=== PATIENT | female | born 1960 | race Caucasian/White ===

== ENCOUNTER 2016-10-24 11:21 | Day surgery (SDC) | payer OTHER ==
[~2016-10-24] VITALS: Ht 175.3 cm; Wt 88.5 kg
[~2016-10-24 11:21] MED LIST: ALBU18HF INH; AMT25T PO; ASP81TEC PO; DICY20TA10 PO; IPRA3AMP IH; MECL-114 PO; MOT200T1 PO; NADO40TA PO; NAPR220C16 PO; NARA2.5T2 PO; NITR0.4T SL; ONDA-54 PO; RANI150C4 PO; SIMV40TA5 PO; Sodium Chloride LOK Flush 10 mL Syringe IV PRN; VENL75TA3 PO; VIT1TABL83 PO; fentaNYL-PF 50 mCg/mL 2 mL Inj IVPUSH PRN
[2016-10-24 11:59] VITALS: BP 131/81; PULSE 72; RESP 16; O2SAT 100
[2016-10-24] MEDS ORDERED: fentaNYL-PF 50 mCg/mL 2 mL Inj ONE (12:21)
[2016-10-24] MEDS ORDERED: 0.9% Sodium Chloride 1,000 ML IV PRN (12:21)
[2016-10-24] MEDS ORDERED: fentaNYL-PF 50 mCg/mL 2 mL Inj IVPUSH PRN (12:25)
[2016-10-24] MEDS ORDERED: Sodium Chloride LOK Flush 10 mL Syringe IV PRN (12:25)
[2016-10-24] MEDS: 0.9% Sodium Chloride 1,000 ML IV SCH ×2 (12:42→12:48)
[2016-10-24 12:52] VITALS: BP 156/86; PULSE 64; RESP 18; O2SAT 100
[2016-10-24] MEDS ORDERED: Ondansetron 2 mg/mL 2 mL Inj ONE ×2 (12:53→13:31)
[2016-10-24 13:02] VITALS: BP 139/84; PULSE 64; RESP 14; O2SAT 100
[2016-10-24 13:12] VITALS: BP 135/76; PULSE 70; RESP 16; O2SAT 100
[2016-10-24] MEDS ORDERED: Ondansetron 2 mg/mL 2 mL Inj IVPUSH ONE (13:33)
[2016-10-24 13:35] VITALS: BP 126/80; PULSE 58; RESP 14; O2SAT 100
--- NOTE | 2016-10-24 13:51 | ENDO ---
[address] [address] ENDOSCOPY PROCEDURE PATIENT: TANESHA SCHWARTZ : 1960 MR#: [id number] ADMIT: 10/24/2016 JOB ID: [id number] DATE: 10/24/2016 TYPE OF OPERATION: Colonoscopy. PREOPERATIVE DIAGNOSIS(ES): Colorectal cancer screening. POSTOPERATIVE DIAGNOSIS(ES): 1. Mild sigmoid diverticulosis. 2. Fair to suboptimal prep. ANESTHESIA: 1. Fentanyl 200 mcg. 2. Versed 0 mg IV administered. COMPLICATIONS: None. BLOOD LOSS: Minimal. DESCRIPTION OF PROCEDURE: After risks and benefits were explained to the patient, informed consent was obtained. After anesthesia administered, colonoscope was then inserted from the rectum to cecum. Mucosa carefully examined. Prep of the patient was suboptimal but fair. After the procedure was done, the scope withdrawn and procedure terminated. FINDINGS: Upon inspection of the anus, no masses, hemorrhoids, ulcers or fissures that were seen. Throughout the entire examination, there was quite a bit of liquid brown stool that was seen throughout the entire colon. Several episodes of suction along with saline flushes was deployed at these areas to get better look at the mucosa. There was mild sigmoid diverticulosis. No polyps or masses were seen. Retroflexion was normal. IMPRESSION: 1. Mild sigmoid diverticulosis. 2. Suboptimal to fair prep. RECOMMENDATIONS: 1. High-fiber diet. 2. Repeat colonoscopy with a two day prep approximately 3-5 years for colorectal cancer screening. 3. Followup in GI clinic as needed.
== END 2016-10-24 23:59 | disposition home or self-care (01) ==
LOC: END 11:21
PROVIDERS: ATTEND Internal Medicine Gastroenterology
DX: Z12.11 Encounter for screening for malignant neoplasm of colon (principal); K57.30 Diverticulosis of large intestine without perforation or abscess without bleeding
CPT/HCPCS: G0121; G0500; J2405; J3010; J7030

== ENCOUNTER → 2016-12-28 | Day surgery (SDC) | payer OTHER ==
[2016-12-28] VITALS (14 sets, daily range): BP systolic 107–142; BP diastolic 60–85; PULSE 59–85; RESP 10–19; O2SAT 94–100
[~2016-12-28] VITALS: Ht 175.3 cm; Wt 88.0 kg
[~2016-12-28] MED LIST changes: +ACET-171 PO; -ASP81TEC PO; +Albuterol 2.5 mg/3 mL Inhalation Solution NEB PRN; +Bupivacaine-MPF 0.5% 30 mL Inj INFILTRATE ONE; +CeFAZolin Inj 2 GM in IV Premix 1 EACH IV ONE; +Dexamethasone 4 mg/mL Inj IVPUSH PRN; +Dexamethasone 4 mg/mL Inj ONE; +EPHEDrine Sulfate 50 mg/mL Inj IVPUSH PRN; +EPHEDrine/NS 5 mg/mL 5 mL Syringe ONE; +Glycopyrrolate 0.2 MG/ML 1mL Inj ONE; +HYDROmorphone 1 mg/mL Inj IVPUSH PRN; +HYDROmorphone 1 mg/mL Inj ONE; +IBUP-1827 PO; +Lactated Ringer's 1,000 ML IV ONE; +Lactated Ringer's 1,000 ML IV SCH; +Lactated Ringer's 500 ML IV PRN; -MOT200T1 PO; -NADO40TA PO; +NADO80TA PO; -NITR0.4T SL; +NITR0.4T38 SL; -ONDA-54 PO; +OXYC-530 PO; +Ondansetron 2 mg/mL 2 mL Inj IVPUSH PRN; +Ondansetron 2 mg/mL 2 mL Inj ONE; +POLY17PO6 PO; +Phenylephrine 10,000 mCg/mL Inj IVPUSH PRN; +Promethazine Inj 12.5 MG in Dextrose 5%-Pha MIX 50 ML IV ONE; +Promethazine Inj 12.5 MG in Dextrose 5%-Pha MIX 50 ML IV PRN; +Promethazine Inj 6.25 MG in Dextrose 5%-Pha MIX 50 ML IV ONE; +Propofol 10,000 mCg/mL 20 mL Inj ONE; +Rocuronium 10 mg/mL 5 mL Inj ONE; -Sodium Chloride LOK Flush 10 mL Syringe IV PRN; +VENL150C98 PO; -VENL75TA3 PO; -VIT1TABL83 PO; -fentaNYL-PF 50 mCg/mL 2 mL Inj IVPUSH PRN
[2016-12-28] MEDS: Lactated Ringer's 1,000 ML IV SCH ×2 (10:48→11:56)
--- NOTE | 2016-12-28 11:30 | PCM.HPANE ---
Patient Data Date of Service: Dec 28, 2016 ([id number]) Surgeon Admitting Provider: Attending Provider:Bhumi Olivares MD Primary Care Physician:Traci Boyd DO Other Provider:Marcel Mascorro Anesthesia Reason for Visit Biliary Colic Ht/WT & BMI Height (Feet): 5 Height (Inches): 9 Weight (Kilograms): 88. Body Mass Index 28.00 Allergies Coded Allergies: clindamycin (Verified Allergy, Severe, Hives, 12/27/16) codeine (Verified Allergy, Severe, Migraine headache, 12/27/16) lidocaine (Verified Allergy, Severe, Migraine headache, 12/27/16) metoclopramide (Verified Allergy, Severe, PANIC ATTACK, 10/23/16) prednisone (Verified Allergy, Severe, Pyschosis, 12/27/16) propoxyphene (Verified Allergy, Severe, Migraine headache, 12/27/16) sumatriptan (Verified Allergy, Severe, Hives, 12/27/16) erythromycin base (Verified Allergy, Intermediate, Nausea and vomiting, ) hydrocodone (Verified Allergy, Intermediate, Nausea and vomiting, 12/27/16) zolpidem (Verified Allergy, Intermediate, ITCHING, 10/23/16) temazepam (Verified Allergy, Mild, Nausea, 10/23/16) fentanyl (Verified Adverse Reaction, Severe, SEVERE NAUSEA/VOMITING, ) midazolam (Verified Adverse Reaction, Unknown, 12/27/16) Past Anesthesia History Anesthesia History: Positive for:: Anesthesia Reactions (N+V for 24 hours), Denies:: Abnormal Airway, Difficult Intubation, Fam Anesthesia Reaction, Fam Malignant Hypertherm, Malignant Hyperthermia Diabetes History Hx Diabetes?: No MRSA MRSA: No Medications Home Meds Incl Beta Puja: Yes Date Beta Puja Taken: Dec 27, 2016 Time Beta Puja Taken: 2029 Reported Medications Albuterol Sulfate (Ventolin HFA Inhaler)200 Puff/18 Gm Inhaler1 Puff INH Q4 PRN For Wheezing #1 INHALER Ref 0 12/27/16 Venlafaxine ER 150 Mg Cap.er.48i261 Mg PO DAILY Ref 0 12/27/16 Simvastatin 40 Mg Glvpsx84 Mg PO QPM 30 Days Ref 0 12/27/16 Ranitidine 150 Mg Ecaugpg903 Mg PO BID Ref 0 12/27/16 Nitroglycerin SL 0.4 Mg Tab.subl0.4 Mg SL DIRECTED PRN For Chest Pain 12/27/16 Naratriptan 2.5 Mg Tablet2.5 Mg PO DIRECTED PRN Headache 12/27/16 Nadolol 80 Mg Txpopl12 Mg PO DAILY 30 Days Ref 0 12/27/16 Naproxen Sodium 220 Mg Xvyfcwn451 Mg PO DAILY PRN For Pain Ref 0 12/27/16 Meclizine (Bonine)25 Mg Tab.chew50 Mg PO DIRECTED PRN For Dizziness 12/27/16 Ipratropium/Albuterol Sulfate (Iprat-Albut 0.5-3(2.5) mg/3 mL Inhalant Soln)3 Ml Ampul.neb3 Ml IH Q6 Ref 0 12/27/16 Dicyclomine 20 Mg Fqdyez44 Mg PO BID PRN For GI Cramps Ref 0 12/27/16 Amitriptyline 25 Mg Tab25 Mg PO HS Ref 0 12/27/16 Discontinued Reported Medications Nadolol 40 Mg Zxotnv27 Mg PO DAILY 30 Days Ref 0 10/23/16 Meclizine (Bonine)25 Mg Tab.chew50 Mg PO DAILY 10/23/16 Albuterol Sulfate (Ventolin HFA Inhaler)200 Puff/18 Gm Inhaler1 Puff INH Q4 PRN For Wheezing #1 INHALER Ref 0 10/23/16 Venlafaxine 75 Mg Zpfxts10 Mg PO BIDWM Ref 0 10/23/16 Ranitidine 150 Mg Kserzxk796 Mg PO BID Ref 0 10/23/16 Ondansetron 8 Mg Tablet8 Mg PO QID PRN For Nausea 10/23/16 Nitroglycerin SL (Nitrostat)0.4 Mg Tab.subl0.4 Mg SL Q5MIN PRN For Chest Pain # 1 BOTTLE 10/23/16 Naratriptan 2.5 Mg Tablet2.5 Mg PO DAILY PRN For Headache 10/23/16 Naproxen Sodium 220 Mg Jyihbxd014 Mg PO BID PRN For Pain Ref 0 10/23/16 Dicyclomine 20 Mg Wqmmrs56 Mg PO BID PRN For GI Cramps Ref 0 10/23/16 Amitriptyline 25 Mg Tab12.5 Mg PO HS Ref 0 10/23/16 History History of ENT Problems?: No HEENT History: Positive for:: Sinus Problem (sinus surgery 2 yrs ago) Denies:: Abnormal Airway Cataracts Difficult Intubation Dysphagia Glaucoma Hearing Problem TMJ Denture Type: None Teeth Condition: Within Normal Limits Hx of Heart Problems?: No Cardiovascular History: Denies:: Pacemaker Hx of Respiratory Problem?: Yes Respiratory History: Positive for:: Asthma Pneumonia Use of C-PAP Machine (DX LIBRADO, cannot tolerate mask on face) Use of Inhalers / NEBS (DuoNeb, Albuterol inh) Denies:: COPD Chest Surgery Dyspnea Emphysema Hemoptysis Tuberculosis Hx Neurologic Problems?: Yes Neurological History: Positive for:: Headaches (migraines) Denies:: Alzheimer's Disease CVA Dementia Dizziness Multiple Sclerosis Parkinson's Disease Seizures TIA Hx of GI Problems?: Yes Hx of Problems?: No Female Hx: Positive for:: Problems with Breasts? (fibro cyctic disease) Denies:: Currently Skin History: Positive for:: History Skin Disorders? (Eczema none at this time (12/27/16)) Denies:: Pressure Ulcers Hx Musculoskeletal Problems?: Yes Musculoskeletal History: Positive for:: Back Injury (Chronic back pain) Musculoskeletal Trauma (fractured r arm 1995, right knee torn 1980) Osteoarthritis Denies:: Degenerative Joint Joint Replacement Rheumatoid Arthritis Systemic Lupus Hx of Psycho/Social Problems?: Yes Psycho Social History: Positive for:: Hx Depression Hx Surgeries?: Yes (knee surgery, 2 c-sections, T+A, sinus, endometrial ablation) Hx Any Other Health Problems?: Yes Other History: Positive for:: Hospitalization Denies:: Cancer Endocrine Disease Thyroid Disease History Blood Transfusions: Positive for:: Accept Blood Products? Denies:: Blood Transfusions Hx Diabetes: No Hx Alcohol Use: Yes (Rarely)Hx Substance Use: No Smoking Status: Unknown if Ever Smoker Have You Smoked inLast 12 mo: YesApprox How Many Cigarettes/day: 20 Stop/Bang LIBRADO Risk Assessment: Low Risk, <3 Yes Risk Assessment Category Category 1A: Patient has history of documented sleep apnea, and HAS NOT received any narcotic, sedative or anesthesia administration during this stay. Category 1B: Patient has history of documented sleep apnea, and HAS received any narcotic , sedative or anesthesia administration during this stay Category 2: Patient has SUSPECTED Obstructive Sleep Apnea, and HAS received any narcotic , sedative or anesthesia administration during this stay. Category 3: Patient has SUSPECTED Obstructive Sleep Apnea and HAS NOT received narcotic, sedative or anesthesia administration during this stay. Category 4: Outpatient in Procedural Areas with known sleep apnea or who screen positive for High Risk via the STOP/BANG questionnaire. Exam Exam Vital Signs Vital Signs Date Time Temp Pulse Resp B/P Pulse Ox O2 Delivery O2 Flow Rate FiO2 12/28/16 10:42 36.1 59 16 135/79 100 Room Air General Appearance: Alert, Oriented X3 HEENT/AIRWAY: MP 1 Lungs: Clear to Auscultation Heart: Exam Unremarkable Meds/Labs/Diagnostics Admission Meds Current Medications Lactated Ringer's (Lr) 1,000 ml @ 120 mls/hr Q8H20M IV Last administered on 10:48; Start 12/28/16 at 05:00; Stop 12/28/16 at 13:19 Gabapentin (Neurontin) 600 mg PREOP ONCE PO Last administered on 12/28/16 10: 20; Start 12/28/16 at 06:00; Stop 12/28/16 at 06:01; Status DC Celecoxib (CeleBREX) 200 mg PREOP ONCE PO Last administered on 12/28/16 10:20 ; Start 12/28/16 at 06:00; Stop 12/28/16 at 06:01; Status DC Acetaminophen (Tylenol) 650 mg PREOP ONCE PO Last administered on 12/28/16 10 :20; Start 12/28/16 at 06:00; Stop 12/28/16 at 06:01; Status DC Plan Impression Patient chart reviewed, patient interviewed and anesthestic plan with risks, benefits, and alternatives discussed, and informed consent obtained. NPO per Anesth. Guidelines: Yes ASA Physical Status: ASA2 Mod Systemic Disease Anesthetic Plan: GA Bene/Risks/Altern/Consents: Yes HP Complete Prior to Induction: Yes Mil Vergara MD Dec 28, 2016 11:30
--- NOTE | 2016-12-28 13:50 | PCM.DISURG ---
Surgical Discharge Instruction Date of Service Dec 28, 2016 Dates of Hospitalization Date of Hospital Admission Providers Admitting Physician: Primary Care Physician: Traci Boyd DO Attending Physician: Bhumi Olivares MD Discharge Diagnosis Discharge Diagnosis Symptomatic cholelithiasis Post Operative diagnosis Symptomatic cholelithiasis Diet Discharge Diet: No restrictions Activity Discharge Activity-General: No lifting >15 pounds for 2 weeks Dressing and Incisional Care Dressing Care: Keep dressing clean, dry & intact, Allow Steri Stripes to fall off (usually in about 1-2 weeks.), Remove outer dressing after 24 hrs (bandaids may be removed.) Hygiene: May shower after (24 hours) Follow Up Plan Follow Up Plan Follow up with General Surgery clinic in 2-3 weeks with PA if any questions, concerns or wound healing issues. Otherwise usually care with PCP. Call your provider for: Discharge @ incision, pus discharge Luis Rdz MD Dec 28, 2016 13:50
--- NOTE | 2016-12-28 13:56 | PCM.ANEP1 ---
Post Anesthesia PACU Phase 1 Assessment Vital Signs 80, 12, 100%, 142/72, 36.0 Vital Signs Date Time Temp Pulse Resp B/P Pulse Ox O2 Delivery O2 Flow Rate FiO2 12/28/16 13:50 36.0 85 11 140/85 100 Simple Mask 10 12/28/16 10:42 36.1 59 16 135/79 100 Room Air Anesthetic Administered: GA Level of Alertness: Awake, talking TIAN's with Equal Strength: Yes Pain: No Nausea or Vomiting: No CV Function & Hydration Stable: Yes Airway Device: NONE Oxygen Delivery: Simple Mask Lungs: Clear to Auscultation Dermatome Level: Full Sensation Summary UNEVENTFUL GETA PACU Phase 2 Assessment Complications: No Follow up Care: No Patient Instructions Provided: N/A Mil Vergara MD Dec 28, 2016 13:56
--- NOTE | 2016-12-28 14:02 | PCM.SURGOP ---
Surgical Operative Report Date of Service: Dec 28, 2016 Pre Operative Diagnosis Chronic cholecystitis Post Operative Diagnosis Chronic cholecystitis Procedure: Laparoscopic cholecystectomy Surgeon and Orchard Manager: Surgeon: Bhumi Olivares MD Assistants: Shiv Duval M.D. R3; Nya Calvo, MS 3 Indication for Procedure This is a 56-year-old woman with IVS and chronic abdominal pain. Over the past several months, she began experiencing new onset of more severe right upper quadrant and sometimes left upper quadrant abdominal pain. She was undergoing workup the gastroenterology department, and on a CT scan, was found to have gallbladder wall thickening, a very distended gallbladder, and cholelithiasis.Her overall constellation of symptoms and findings were consistent with chronic cholecystitis, and therefore laparoscopic cholecystectomy was scheduled. Findings: 1. Very distended gallbladder with moderate inflammation consistent with chronic cholecystitis. 2. The gallbladder was opened on the back table and found to contain innumerable black gallstones. Procedure Details The patient was brought to the operating room and placed in supine position. General endotracheal anesthesia was smoothly induced. Antibiotics were infused. A warming blanket and SCDs were placed. A foot board was placed. The operative field was prepped and draped in sterile fashion. A pause was performed to confirm the correct patient, procedure, site, and side. A transverse 10 mm incision was made just below the umbilicus. The abdomen was entered under direct vision using a Abdiaziz port. Three additional 5 mm ports were placed in the epigastrium and right upper quadrant. The gallbladder was identified and lifted cephalad. It was very distended and somewhat floppy. There was moderate overlying inflammation, consistent with chronic cholecystitis. Dissection then proceeded to identify the cystic duct, cystic artery, and to expose the bottom one third of the cystic plate. Once there were two and only two structures entering the gallbladder, the cystic duct was clipped on the gallbladder and twice on the patient side, and the cystic artery was clipped twice on the patient's side and once on the gallbladder side, and both were then divided. The gallbladder was then removed from its bed on the liver with electrocautery. Prior to completely removing the gallbladder, a final look was taken at the stump of the cystic artery and cystic duct, and there was no bleeding or bile leak. The gallbladder was then fully removed from the liver and placed in an EndoCatch bag and removed. A small amount of bile leaked out of the bag during extraction, and therefore, copious irrigation was performed of the infraumbilical port site. The three 5 mm ports were removed under direct vision, the 10 mm mid abdominal port was removed, and a [id number] 0 PDS was used to close the fascia. There was no fascial defect at the end of the case. 0.5% Marcaine with epinephrine was infused at all port sites for postoperative analgesia. The skin was closed with subcuticular 4-0 Monocryl. Sterile dressings were placed. The patient was awakened from general anesthesia and taken to the postoperative care unit in good condition. Complications There were no periprocedural complications identified. Surgical Specimen Removed: Yes Specimen sent to Pathology: Yes Surgical Specimen description: Gallbladder Anesthetic Plan: GA Grafts, Implants: None Output, Estimated Blood Loss: 2 (ml) Blood Administration during daley: No Bhumi Olivares MD Dec 28, 2016 14:02
--- NOTE | 2017-01-01 16:47 | PATH ---
SURGICAL PATHOLOGY Attending Physician:Bhumi Olivares MD CASE STATUS: Signed Out PATIENT NAME: TANESHA SCHWARTZ PID: [id number] : 1960 DATE COLLECTED:12/28/2016 00:00 SPECIMEN: Gallbladder CLINICAL HISTORY: 1). GALLBLADDER FINAL DIAGNOSIS: 1.GALLBLADDER, CHOLECYSTECTOMY: - CHRONIC CHOLECYSTITIS AND CHOLELITHIASIS. ICD10 K80.11 GROSS DESCRIPTION: The specimen is received in formalin, labeled with the patient's name, sublabeled as gallbladder, and consists of an opened gallbladder (length-11.7 cm, diameter-3.3 cm) with a patent cystic duct. The proximal lumen (length-1.8 cm) is 98% occluded and contains dark green viscous bile. No lymph nodes are identified. The serosa is dark green smooth and shiny. The mucosa is dark green smooth and flat. The wall is up to 0.3 cm thick. The contents are also submitted and consist of dark green viscous bile and multiple black solid round calculi (7.2 x 6.5 x 1.8 in aggregate, each approximately 0.1 cm). No nodules, masses or lesions are identified. Section code: (A) gallbladder, cystic duct resection margin, proximal lumen, 1 longitudinal section and 1 serial section; (B) 2 serial sections from the body; (C) 2 longitudinal sections from the fundus. 12/30/16 MICRO DESCRIPTION: See diagnosis. ICD-9 CODES: CPT CODES: 1: 34560 Electronically Signed Out Paramjit Maciel MD [facility] [address], [place] [address] Technical component performed at [facility], [facility] [address], [place], [address]
== END | disposition home or self-care (01) ==
LOC: SAS 09:37
PROVIDERS: ATTEND Surgery
DX: K80.10 Calculus of gallbladder with chronic cholecystitis without obstruction (principal); E78.5 Hyperlipidemia, unspecified; J45.909 Unspecified asthma, uncomplicated; K58.9 Irritable bowel syndrome, unspecified; G43.909 Migraine, unspecified, not intractable, without status migrainosus; F32.9 Major depressive disorder, single episode, unspecified; F41.9 Anxiety disorder, unspecified; K21.9 Gastro-esophageal reflux disease without esophagitis; F17.210 Nicotine dependence, cigarettes, uncomplicated; Z79.51 Long term (current) use of inhaled steroids
CPT/HCPCS: 47562; J0690; J1100; J1170; J2405; J2550; J2704; J7120